=== PATIENT | female | born 1980 | race Caucasian/White ===

== ENCOUNTER → 2016-11-21 | Outpatient (CLI) | payer MEDICAID ==
[~2016-11-21] MED LIST: ALBU18HF INH; ARIP20TA8 PO; ASPI-496 PO; BUSP10TA PO; GEMF600T3 PO; HYDR50TA13 PO; METF500T4 PO; QUET200T PO; SERT50TA5 PO; ZOLP-413 PO
[2016-11-21 11:36] LABS: HEMOGLOBIN 13.4 g/dL (11.7-16.4)
[2016-11-21 11:44] LABS: ASPARTATE AMINO TRANSFERASE 109 U/L (15-37); BLOOD UREA NITROGEN 12 mg/dL (7-18)
== END | disposition home or self-care (01) ==
LOC: STAR 10:05
PROVIDERS: ATTEND Orthopaedic Surgery Orthopaedic Surgery of the Spine
DX: Z01.818 Encounter for other preprocedural examination (principal); S60.019A Contusion of unspecified thumb without damage to nail, initial encounter; M54.16 Radiculopathy, lumbar region; M19.012 Primary osteoarthritis, left shoulder; M75.42 Impingement syndrome of left shoulder; X58.XXXA Exposure to other specified factors, initial encounter; Y93.89 Activity, other specified; Y92.89 Other specified places as the place of occurrence of the external cause; Y99.2 Volunteer activity
CPT/HCPCS: 36415; 80053; 81003; 85025; 93005

== ENCOUNTER 2016-12-18 07:59 | Observation (INO) | payer MEDICAID ==
[~2016-12-18] VITALS: Ht 177.8 cm; Wt 126.7 kg
[2016-12-18] MEDS ORDERED: MIDAZOLAM 1 MG/ML, 2ML ONE (08:49)
[2016-12-18] MEDS ORDERED: FENTANYL PF 250 MCG/5ML ONE (08:49)
[2016-12-18 08:56] VITALS: BP 130/86
[2016-12-18] MEDS ORDERED: LIDOCAINE 1%, 2ML ONE (08:59)
[2016-12-18 09:05] LABS: DAU SCREEN DISCLAIMER
[2016-12-18] MEDS ORDERED: LACTATED RINGERS 1,000 ML IV SCH (09:05)
[2016-12-18] MEDS ORDERED: IPRA4AER IH (09:11)
[2016-12-18] MEDS ORDERED: LAMO100T PO (09:11)
[2016-12-18] MEDS ORDERED: HOME OXYGEN NAS (09:11)
[2016-12-18] MEDS ORDERED: LIDOCAINE 1%, 2ML SQ PRN (09:30)
[2016-12-18] MEDS ORDERED: BUPIVACAINE LIPOSOME/PF INFIL ONE (09:30)
[2016-12-18] MEDS ORDERED: THROMBIN 5,000 UNIT VIAL TP ONE (09:48)
[2016-12-18] MEDS ORDERED: TRANEXAMIC ACID 100 MG/ML, 10ML ONE ×2 (09:48)
[2016-12-18] MEDS ORDERED: LIDOCAINE/MPF 2%-EPI 1:200K, 20 ML ONE (09:48)
[2016-12-18] MEDS ORDERED: VANCOMYCIN 1,000 MG ONE (09:48)
[2016-12-18] MEDS ORDERED: ROCURONIUM 10 MG/ML ONE (10:10)
[2016-12-18] MEDS ORDERED: PROPOFOL 10 MG/ML, 20ML ONE (10:10)
[2016-12-18] MEDS ORDERED: ONDANSETRON 2MG/ML, 2ML ONE ×3 (10:10→18:31)
[2016-12-18] MEDS ORDERED: SUCCINYLCHOLINE 20 MG/ML, 10ML ONE (10:10)
[2016-12-18] MEDS ORDERED: CEFAZOLIN 1,000 MG ONE (10:10)
[2016-12-18] MEDS ORDERED: ONDANSETRON 2MG/ML, 2ML IVPush PRN (13:00)
[2016-12-18] MEDS ORDERED: hydrALAzine 20 MG/ML, 1ML IV PRN (13:00)
[2016-12-18] MEDS ORDERED: METOCLOPRAMIDE 5 MG/ML, 2ML IV PRN (13:00)
[2016-12-18] MEDS ORDERED: MAGNESIUM HYDROXIDE 8%, 30ML UDC PO PRN (13:00)
[2016-12-18] MEDS ORDERED: BISACODYL 10 MG SUPP PR PRN (13:00)
[2016-12-18] MEDS ORDERED: ZOLPIDEM 5MG TABLET PO PRN (13:00)
[2016-12-18] MEDS ORDERED: FENTANYL PF 100 MCG/2ML ONE ×2 (13:00)
[2016-12-18] MEDS ORDERED: CEFAZOLIN PMX 1GM/50ML 50 ML IVPB SCH (13:00)
[2016-12-18] MEDS ORDERED: SENNA/DOCUSATE TABLET PO PRN (13:00)
[2016-12-18] MEDS ORDERED: ACETAMINOPHEN 325 MG TABLET PO PRN (13:00)
[2016-12-18] MEDS ORDERED: OXYcodone 5 MG/5 ML ORAL.SOL UDC PO PRN (13:00)
[2016-12-18] MEDS ORDERED: HYDROmorphone 2 MG/ML, 1ML ONE (13:00)
[2016-12-18] MEDS ORDERED: PHARMACY MAY ADJ FOR RENAL FX MC PRN (13:00)
[2016-12-18] MEDS ORDERED: LABETALOL 5MG/ML, 20ML IV PRN (13:00)
[2016-12-18] MEDS ORDERED: ACETAMINOPHEN 650 MG SUPP PR PRN (13:00)
[2016-12-18] MEDS: FENTANYL PF 100 MCG/2ML IV PRN ×4 (13:02→13:29)
[2016-12-18] MEDS: HYDROmorphone 1 MG/ML, 1ML IV PRN ×4 (13:39→14:04)
[2016-12-18] MEDS ORDERED: METOCLOPRAMIDE 5 MG/ML, 2ML ONE (13:40)
[2016-12-18] MEDS: HYDROmorphone 1 MG/ML, 1ML IVPush PRN ×4 (14:48→23:52)
[2016-12-18] MEDS ORDERED: ALBUTEROL SULFATE 2.5 MG/3 ML NPPB PRN (15:00)
[2016-12-18] MEDS: ALBUTEROL/IPRATROPIUM 2.5MG/0.5MG, 3 ML NPPB SCH ×2 (15:00→21:00)
[2016-12-18] MEDS: OXYcodone/APAP 5/325MG TABLET PO PRN (16:31)
[2016-12-18] MEDS: ONDANSETRON 2MG/ML, 2ML IVPush PRN (18:35)
[2016-12-18] MEDS: CEFAZOLIN 3,000 MG in SODIUM CHLORIDE 0.9% 100 ML IV SCH (18:35)
[2016-12-18 18:53] VITALS: BP 111/58
[2016-12-18] MEDS: BUSPIRONE 10 MG TABLET PO SCH (20:49)
[2016-12-18] MEDS: LAMOTRIGINE 100 MG TABLET PO SCH (20:49)
[2016-12-18] MEDS: metFORMIN 500 MG TABLET PO SCH (20:49)
[2016-12-18] MEDS: GEMFIBROZIL 600 MG TABLET PO SCH (20:49)
[2016-12-18 23:10] VITALS: BP 107/56
[2016-12-18] MEDS: DIAZEPAM 5 MG TABLET PO PRN (23:52)
[2016-12-19] MEDS: ONDANSETRON 2MG/ML, 2ML IVPush PRN (00:49)
[2016-12-19] MEDS: OXYcodone/APAP 5/325MG TABLET PO PRN ×4 (00:49→16:22)
[2016-12-19] MEDS: CEFAZOLIN 3,000 MG in SODIUM CHLORIDE 0.9% 100 ML IV SCH (00:50)
[2016-12-19] MEDS: ALBUTEROL/IPRATROPIUM 2.5MG/0.5MG, 3 ML NPPB SCH ×2 (03:00→09:00)
[2016-12-19 03:53] VITALS: BP 113/61
[2016-12-19 07:01] VITALS: BP 108/65
[2016-12-19] MEDS: LAMOTRIGINE 100 MG TABLET PO SCH (08:00)
[2016-12-19] MEDS: DIAZEPAM 5 MG TABLET PO PRN ×2 (08:00→18:42)
[2016-12-19] MEDS: BUSPIRONE 10 MG TABLET PO SCH (08:01)
[2016-12-19] MEDS: metFORMIN 500 MG TABLET PO SCH (08:01)
[2016-12-19] MEDS: GEMFIBROZIL 600 MG TABLET PO SCH (08:02)
[2016-12-19] MEDS ORDERED: QUETIAPINE 200 MG TABLET PO SCH (09:00)
[2016-12-19] MEDS ORDERED: SERTRALINE 50MG TABLET PO SCH (09:00)
[2016-12-19] MEDS ORDERED: ARIPIPRAZOLE 10 MG TABLET PO SCH (09:00)
[2016-12-19] MEDS ORDERED: ASPIRIN 81 MG TABLET EC PO SCH (09:00)
[2016-12-19 14:03] VITALS: BP 106/52
[2016-12-19 18:39] VITALS: BP 108/69
== END 2016-12-19 18:52 | disposition home or self-care (01) ==
LOC: OR 07:59 → 4NOR 14:28 → OUT 23:14 → INTOOBSV 23:15 → 4NOR 23:15
PROVIDERS: ADMIT Orthopaedic Surgery Orthopaedic Surgery of the Spine; ATTEND Orthopaedic Surgery Orthopaedic Surgery of the Spine
DX: M48.06 Spinal stenosis, lumbar region (principal); M54.16 Radiculopathy, lumbar region; M79.604 Pain in right leg; Z98.890 Other specified postprocedural states
CPT/HCPCS: 63047; 63048; 72100; 80307; 82962; 96365; 96375; 96376; C9290; G0378; J0330; J0690; J1170; J2250; J2405; J2704; J2765; J3010; J3370; J3490; J7120